=== PATIENT | male | born 1955 | race Caucasian/White ===

== ENCOUNTER 2018-12-17 11:48 | Emergency (ER) | payer OTHER ==
[~2018-12-17] VITALS: Wt 75.0 kg
[2018-12-17] MEDS ORDERED: SOD CHLORIDE 0.9% 1,000 ML IV STA (13:14)
[2018-12-17] MEDS ORDERED: ONDANSETRON 4 MG INJ IV STA (13:14)
[2018-12-17] MEDS ORDERED: KETOROLAC 15 MG INJ IV STA (13:14)
[2018-12-17] MEDS ORDERED: ATEN50TA PO (13:31)
--- NOTE | 2018-12-17 13:47 | ERD ---
ER Documentation Chief Complaint Chief Complaint dizziness 'just started now'; 'feels like dying'. gen weakness. HPI 63-year-old man complains of dizziness, nausea, vomiting beginning a few hours prior to arrival, he states symptoms began after waking up and when he opens his eyes symptoms get worse. He denies slurred speech, no weakness in his arms or legs, no complaints of chest pain or shortness of breath ROS All systems reviewed and are negative except as per history of present illness. Medications Home Meds Active Scripts Ondansetron Hcl* (Zofran*) 4 Mg Tablet, 4 MG PO Q8H PRN for NAUSEA AND/OR VOMITING, #20 TAB Prov:NINA STERN MD 12/17/18 Meclizine Hcl* (Antivert*) 12.5 Mg Tab, 25 MG PO Q6H PRN for DIZZINESS, #20 TAB Prov:NINA TSERN MD 12/17/18 Reported Medications Atenolol* (Atenolol*) 50 Mg Tablet, 50 MG PO DAILY, #30 TAB 12/17/18 Allergies Allergies: Coded Allergies: No Known Allergy (Unverified , 12/17/18) PMhx/Soc Hypertension Medical and Surgical Hx: pt denies Surgical Hx Hx Cardiac Disorders: Yes (HTN) Hx Alcohol Use: No Hx Substance Use: No Hx Tobacco Use: No Smoking Status: Never smoker FmHx Family History: No diabetes Physical Exam Vitals Vital Signs Date Temp Pulse Resp B/P (MAP) Pulse Ox O2 O2 Flow FiO2 Time Delivery Rate 12/17/18 98.1 66 16 129/76 100 Room Air 16:48 (93) 12/17/18 61 17 134/67 100 Room Air 15:15 (89) 12/17/18 98.8 60 26 177/84 96 12:37 (115) Physical Exam GENERAL: Well-developed, well-nourished, well-hydrated, in no apparent distress, looks nontoxic in appearance HEENT: Moist mucous membranes, pink conjunctiva, no cervical spine tenderness or step-off deformities, no goiter, no jaundice or icterus, extraocular movements intact without pain. No submandibular induration, and no pharyngeal erythema NEURO: Alert and oriented 3, cranial nerves II through XII intact bilaterally, pupils equal round reactive to light, no focal deficits or facial asymmetry, s ensation intact distally Strength 5/5 in upper and lower extremities bilaterally CARDIAC: Regular rate and rhythm, no murmurs rubs or gallops LUNGS: Clear bilaterally no wheezing crackles or stridor ABDOMEN: Soft nontender, no guarding, no rigidity, no rebound, no psoas sign no obturator sign. Normoactive bowel sounds SKIN: Warm and dry to touch, no abrasions, contusions, or hematomas, no lacerati ons, no ecchymosis, no target lesions, and without ulcers EXTREMITIES: No clubbing cyanosis or edema, calves are bilaterally symmetrical, no Homans sign, no popliteal cord sign. Distal pulses equal and bilateral PSYCH: Normal affect without agitation or irritability Result Diagram: 12/17/18 1305 12/17/18 1305 Results 24 hrs Laboratory Tests Test 12/17/18 13:05 White Blood Count 5.4 10^3/ul Red Blood Count 5.10 10^6/ul Hemoglobin 14.6 g/dl Hematocrit 44.7 % Mean Corpuscular Volume 87.6 fl Mean Corpuscular Hemoglobin 28.6 pg Mean Corpuscular Hemoglobin Concent 32.7 g/dl Red Cell Distribution Width 12.0 % Platelet Count 216 10^3/UL Mean Platelet Volume 9.2 fl Immature Granulocytes % 0.400 % Neutrophils % 51.0 % Lymphocytes % 36.5 % Monocytes % 7.1 % Eosinophils % 4.3 % Basophils % 0.7 % Nucleated Red Blood Cells % 0.0 /100WBC Immature Granulocytes # 0.020 10^3/ul Neutrophils # 2.7 10^3/ul Lymphocytes # 2.0 10^3/ul Monocytes # 0.4 10^3/ul Eosinophils # 0.2 10^3/ul Basophils # 0.0 10^3/ul Nucleated Red Blood Cells # 0.0 10^3/ul Sodium Level 140 mmol/L Potassium Level 4.1 mmol/L Chloride Level 103 mmol/L Carbon Dioxide Level 28 mmol/L Anion Gap 9 Blood Urea Nitrogen 14 mg/dl Creatinine 0.89 mg/dl Est Glomerular Filtrat Rate mL/min > 60 mL/min Glucose Level 112 mg/dl Calcium Level 9.5 mg/dl Total Bilirubin 0.4 mg/dl Direct Bilirubin 0.00 mg/dl Indirect Bilirubin 0.4 mg/dl Aspartate Amino Transf (AST/SGOT) 20 IU/L Alanine Aminotransferase (ALT/SGPT) 28 IU/L Alkaline Phosphatase 78 IU/L Troponin I < 0.012 ng/ml Total Protein 7.4 g/dl Albumin 4.3 g/dl Globulin 3.10 g/dl Albumin/Globulin Ratio 1.38 Lipase 56 U/L Current Medications Medications Dose Sig/Yanet Start Time Status Last (Trade) Ordered Route PRN Stop Time Admin Dose Reason Admin Sodium 1,000 ml @ Q1H STAT 12/17/18 DC 12/17/18 Chloride 1,000 mls/hr IV 13:14 13:36 12/17/18 14:13 Ondansetron 4 mg ONCE STAT 12/17/18 DC 12/17/18 HCl (Zofran IV 13:14 13:36 Inj) 12/17/18 13:18 Ketorolac 15 mg ONCE STAT 12/17/18 DC 12/17/18 Tromethamine IV 13:14 13:36 (Toradol) 12/17/18 13:18 Procedures/MDM IV line was established patient was placed on director of cardiac cath lab rhythm strip revealed a sinus rhythm at about 60 bpm with upright P and T waves. Patient was afebrile EKG performed, read by me: 63 bpm, normal sinus rhythm, normal axis, no acute ST segment changes, right ventricular conduction delay QRS duration 102 ms, with good R-wave progression in precordial leads. CT scan of the brain was negative for acute bleed mass or shift I administered 1 L normal saline IV, Zofran 4 mg IV, Toradol 15 mg IV. CBC and electrolytes are normal, liver function tests were normal, troponin was negative. Patient's neurologic exam was repeated by me and remains normal, he has no gait ataxia, vital signs are normal, he is able to open his eyes now without di fficulty and he has no more nausea. Differential diagnoses considered, included but not limited to acute coronary syndrome, pulmonary embolism, aortic dissection, abdominal aortic aneurysm, sepsis, stroke, meningitis, encephalitis, pneumonia, appendicitis, cholecystitis, bowel obstruction, pyelonephritis, nephrolithiasis, cystitis, as well as metabolic, hematologic, and electrolyte abnormalities. As well as abscess, cellulitis, fractures, and dislocations. Patient feels much better at this time, and vital signs are normal, symptoms have improved. I did give strict instructions to return to the ED if symptoms continue or worsen, patient will otherwise follow-up with primary care physician. Patient understood instructions and agreed to plan. Disclaimer: Inadvertent spelling and grammatical errors are likely due to EHR/dictation software use and do not reflect on the overall quality of patient care. Also, please note that the electronic time recorded on this note does not necessarily reflect the actual time of the patient encounter. Departure Diagnosis: Primary Impression: BPPV (benign paroxysmal positional vertigo) Laterality: bilateral Qualified Codes: H81.13 - Benign paroxysmal vertigo, bilateral Condition: Good NINA STERN MD Dec 17, 2018 13:47
[2018-12-17] MEDS ORDERED: MECL12.574 PO (16:34)
[2018-12-17] MEDS ORDERED: ONDA4TAB8 PO (16:34)
[2018-12-17 16:48] VITALS: BP 129/76; PULSE 66; RESP 16
== END 2018-12-17 16:54 | disposition home or self-care (01) ==
LOC: E/R 11:48
DX: H81.13 Benign paroxysmal vertigo, bilateral (principal); I10 Essential (primary) hypertension
CPT/HCPCS: 36415; 70450; 80053; 83690; 84484; 85025; 96361; 96374; 96375; 99285; J1885; J2405; J7030